=== PATIENT | male | born 1995 | race Caucasian/White ===

== ENCOUNTER 2020-07-14 10:23 | Emergency (ER) | payer OTHER ==
[~2020-07-14] VITALS: Ht 190.5 cm; Wt 117.9 kg
[~2020-07-14 10:23] MED LIST: AMOXIL500 MG PO; ANTIVERT25 MG PO; KEFLEX500 MG PO; MOTRIN600 MG PO; MOTRIN800 MG PO; NORCO 325 MG-51 TAB PO; SILVADENE,SSD C50 GM PO
[2020-07-16] MEDS ORDERED: NORCO 5-325 TA1 EACH PO (15:18)
== END 2020-07-14 12:57 | disposition home or self-care (01) ==
LOC: ED 10:23
DX: S68.116A Complete traumatic metacarpophalangeal amputation of right little finger, initial encounter (principal); X58.XXXA Exposure to other specified factors, initial encounter; Y93.89 Activity, other specified; Y92.89 Other specified places as the place of occurrence of the external cause; Y99.8 Other external cause status

== ENCOUNTER → 2020-07-16 | Day surgery (SDC) | payer OTHER ==
[~2020-07-16] VITALS: Ht 185.4 cm; Wt 140.6 kg
[~2020-07-16] MED LIST changes: +NORCO 5-325 TA1 EACH PO
[2020-07-16 12:41] VITALS: BP 152/91
[2020-07-16 15:01] VITALS: BP 99/55
[2020-07-16 15:16] VITALS: BP 102/51
[2020-07-16 15:31] VITALS: BP 105/54
[2020-07-16 15:46] VITALS: BP 128/72
[2020-07-16 16:01] VITALS: BP 139/87
== END | disposition home or self-care (01) ==
LOC: SDC 12:30
PROVIDERS: ATTEND Psychiatry & Neurology Psychiatry
DX: S62.636B Displaced fracture of distal phalanx of right little finger, initial encounter for open fracture (principal); E66.9 Obesity, unspecified; Z68.41 Body mass index [BMI] 40.0-44.9, adult; Z98.890 Other specified postprocedural states; Z79.899 Other long term (current) drug therapy; X58.XXXA Exposure to other specified factors, initial encounter; Y93.89 Activity, other specified; Y92.89 Other specified places as the place of occurrence of the external cause; Y99.8 Other external cause status; Z83.3 Family history of diabetes mellitus

== ENCOUNTER 2021-01-15 14:05 | Emergency (ER) | payer OTHER ==
[~2021-01-15] VITALS: Ht 182.8 cm; Wt 117.9 kg
== END 2021-01-15 15:13 | disposition home or self-care (01) ==
LOC: ED 14:05
DX: S93.401A Sprain of unspecified ligament of right ankle, initial encounter (principal); Z79.899 Other long term (current) drug therapy; X50.1XXA Overexertion from prolonged static or awkward postures, initial encounter; Y93.89 Activity, other specified; Y92.89 Other specified places as the place of occurrence of the external cause; Y99.8 Other external cause status